=== PATIENT | male | born 1975 | race African-American/Black ===

== ENCOUNTER 2017-09-10 10:58 | Emergency (ER) | payer MEDICAID, OTHER ==
[~2017-09-10] VITALS: Ht 175.3 cm; Wt 91.0 kg
[~2017-09-10 10:58] MED LIST: AMLO2.5T2 PO; ASPI-1160 PO; CARV20CP PO; CLOP75TA33 PO; METF500T4 PO
[2017-09-10] MEDS ORDERED: NITR0.4T49 SL (12:09)
[2017-09-10 13:14] LABS: BASOPHILS % 0.9 % (0.0-2.0); EOSINOPHILS % 5.2 % (0.0-5.0); HEMATOCRIT. 37.3 % (42.0-52.0); HEMOGLOBIN. 12.6 g/dL (14.0-18.0); MEAN CORPUSCULAR HEMOGLOBIN 29.2 pg (28.0-32.0); MEAN CORPUSCULAR VOLUME 86.5 fL (80.0-94.0); MONOCYTES % 8.7 % (2.0-8.0); NEUTROPHILS % 65.2 % (40.0-76.0); PLATELET 278 x1000/uL (130-400); RED BLOOD CELL COUNT 4.31 mill/uL (4.7-6.1); RED CELL DISTRIBUTION WIDTH 14.1 % (11.6-14.6)
[2017-09-10 13:20] LABS: CHLORIDE 106 mEq/L (98-107)
[2017-09-10 13:23] LABS: INR 1.2; PARTIAL THROMBOPLASTIN TIME 25.5 sec (23.4-31.0); PROTHROMBIN TIME 12.1 sec (9.4-11.6)
[2017-09-10] MEDS ORDERED: ASPIRIN 81MG TABLET PO ONE (13:45)
[2017-09-10 14:29] VITALS: BP 111/86
== END 2017-09-10 14:33 | disposition left against medical advice (07) ==
LOC: ER 12:41 → CANBEDREQ 17:43
DX: R07.9 Chest pain, unspecified (principal); I11.0 Hypertensive heart disease with heart failure; I50.9 Heart failure, unspecified; E11.9 Type 2 diabetes mellitus without complications; R79.89 Other specified abnormal findings of blood chemistry; F17.200 Nicotine dependence, unspecified, uncomplicated; R94.31 Abnormal electrocardiogram [ECG] [EKG]; Z79.82 Long term (current) use of aspirin; Z86.73 Personal history of transient ischemic attack (TIA), and cerebral infarction without residual deficits
CPT/HCPCS: 36415; 71045; 80053; 83690; 83880; 84484; 85025; 85610; 85730; 93005; 99285